=== PATIENT | male | born 1960 | race African-American/Black ===

== ENCOUNTER 2020-02-13 18:32 | Emergency (ER) | payer SELFPAY ==
[~2020-02-13] VITALS: Ht 170.2 cm; Wt 64.0 kg
[2020-02-13 18:40] VITALS: BP 139/70
[2020-02-13] MEDS ORDERED: IBUPROFEN 600MG TABLET PO ONE (19:00)
[2020-02-13] MEDS: IBUPROFEN 600MG TABLET PO NR ×2 (21:00→21:33)
[2020-02-13] MEDS ORDERED: LIDOCAINE HCL 1% 20ML VIAL (Pyxis) INJ INFIL ONE (21:15)
[2020-02-13] MEDS ORDERED: SULFAMETHOXAZOLE/TRIMETHOPRIM 800/160MG TABLET PO ONE (22:00)
[2020-02-13] MEDS ORDERED: TETANUS, DIPHTHERIA, PERTUSSIS VAC/PF 0.5ML (>7YR OLD) IM ONE (22:00)
== END 2020-02-13 22:34 | disposition home or self-care (01) ==
LOC: ER 18:32 → EDBD 18:32 → ER 22:34
DX: L02.511 Cutaneous abscess of right hand (principal); I11.9 Hypertensive heart disease without heart failure; F14.10 Cocaine abuse, uncomplicated; F15.10 Other stimulant abuse, uncomplicated; F41.9 Anxiety disorder, unspecified; F17.210 Nicotine dependence, cigarettes, uncomplicated; Z91.041 Radiographic dye allergy status; Z88.0 Allergy status to penicillin; Z91.013 Allergy to seafood; Z87.828 Personal history of other (healed) physical injury and trauma
CPT/HCPCS: 10060; 73130; 90471; 90715; 99283; J3490; Z7610

== ENCOUNTER 2020-02-26 09:19 | Emergency (ER) | payer MEDICAID ==
[2020-02-26] MEDS ORDERED: ALBUTEROL 6.7GM HFA INHALER ORI ONE (09:30)
[2020-02-26] MEDS ORDERED: KETOROLAC 15MG/ML VIAL IV ONE (10:00)
[2020-02-26 10:12] LABS: BASOPHILS % 0.9 % (0.0-2.0); EOSINOPHILS % 0.5 % (0.0-5.0); HEMATOCRIT. 39.1 % (42.0-52.0); HEMOGLOBIN. 12.5 g/dL (14.0-18.0); LYMPHOCYTES % 20.3 % (20.0-50.0); MEAN CORPUSCULAR HEMOGLOBIN 29.1 pg (28.0-32.0); MEAN CORPUSCULAR VOLUME 90.7 fL (80.0-94.0); MONOCYTES % 10.3 % (2.0-8.0); PLATELET 199 x1000/uL (130-400); RED BLOOD CELL COUNT 4.31 mill/uL (4.7-6.1)
[2020-02-26 10:18] LABS: CHLORIDE 103 mEq/L (98-107)
== END 2020-02-26 13:16 | disposition left against medical advice (07) ==
LOC: ER 09:19
DX: I11.9 Hypertensive heart disease without heart failure (principal); B34.9 Viral infection, unspecified; F14.10 Cocaine abuse, uncomplicated; F15.10 Other stimulant abuse, uncomplicated; F17.200 Nicotine dependence, unspecified, uncomplicated; Z98.890 Other specified postprocedural states; Z88.0 Allergy status to penicillin; Z91.013 Allergy to seafood; Z91.041 Radiographic dye allergy status
CPT/HCPCS: 36415; 80053; 83880; 84484; 85025; 93005; 99284

== ENCOUNTER 2020-03-29 11:24 | Emergency (ER) | payer MEDICAID ==
[~2020-03-29] VITALS: Ht 175.3 cm; Wt 74.8 kg
[2020-03-29] MEDS ORDERED: ONDANSETRON HCL 4MG/2ML INJ IV ONE (11:45)
[2020-03-29] MEDS ORDERED: LEVOFLOXACIN 750MG PREMIX 150 ML IV ONE (11:45)
[2020-03-29] MEDS ORDERED: DEXAMETHASONE 10 MG/ML VIAL IV ONE (11:45)
[2020-03-29] MEDS ORDERED: ACETAMINOPHEN 325MG TABLET PO ONE (11:45)
[2020-03-29] MEDS ORDERED: OSELTAMIVIR 75MG CAPSULE PO ONE (12:00)
[2020-03-29] MEDS ORDERED: ASPIRIN 81MG TABLET PO ONE (12:00)
[2020-03-29 12:20] LABS: HEMOGLOBIN. 12.4 g/dL (14.0-18.0); MEAN CORPUSCULAR VOLUME 89.1 fL (80.0-94.0); MEAN PLATELET VOLUME 8.4 fl (7.4-10.4); PLATELET 267 x1000/uL (130-400); RED BLOOD CELL COUNT 4.26 mill/uL (4.7-6.1); RED CELL DISTRIBUTION WIDTH 13.8 % (11.6-14.6)
[2020-03-29 12:28] LABS: CHLORIDE 101 mEq/L (98-107)
[2020-03-29 12:29] LABS: INR 1.2; PARTIAL THROMBOPLASTIN TIME 32.5 sec (23.4-31.0); PROTHROMBIN TIME 12.4 sec (9.6-11.0)
[2020-03-29 12:54] VITALS: BP 159/96
[2020-03-29 13:16] LABS: PLATELET ESTIMATE NORMAL
[2020-03-29 13:29] LABS: CLARITY URINE CLEAR (CLEAR); COLOR URINE YELLOW (YELLOW); KETONES URINE TRACE (NEGATIVE); LEUKOCYTE ESTERASE URINE NEGATIVE (NEGATIVE); NITRITE URINE NEGATIVE (NEGATIVE); OCCULT BLOOD URINE NEGATIVE (NEGATIVE); PROTEIN URINE 1+ (NEGATIVE); SPECIFIC GRAVITY URINE 1.022 (1.005-1.030)
== END 2020-03-29 14:45 | disposition left against medical advice (07) ==
LOC: ER 11:24
DX: R06.02 Shortness of breath (principal); R06.00 Dyspnea, unspecified; R50.9 Fever, unspecified; R94.31 Abnormal electrocardiogram [ECG] [EKG]; I10 Essential (primary) hypertension; Z88.0 Allergy status to penicillin; Z20.822 Contact with and (suspected) exposure to COVID-19; Z91.013 Allergy to seafood; Z91.041 Radiographic dye allergy status
CPT/HCPCS: 36415; 71045; 80053; 81003; 83605; 83880; 84145; 84484; 85025; 85610; 85730; 87040; 87086; 87804; 93005; 96365; 96375; 99285; C9803; J1100; J1956; J2405; U0003; Z7610

== ENCOUNTER 2020-11-01 18:05 | Inpatient (IN) | payer MEDICAID ==
[~2020-11-01] VITALS: Ht 182.9 cm; Wt 61.4 kg
[2020-11-01] MEDS ORDERED: SODIUM CHLORIDE 0.9% 1,000 ML IV ONE (18:45)
[2020-11-01] MEDS ORDERED: DILTIAZEM HCL 5MG/ML 5ML VIAL IV ONE ×3 (18:45→21:15)
[2020-11-01 19:09] LABS: BASOPHILS % 0.5 % (0.0-2.0); HEMATOCRIT. 41.4 % (42.0-52.0); HEMOGLOBIN. 13.7 g/dL (14.0-18.0); LYMPHOCYTES % 10.8 % (20.0-50.0); MEAN CORPUSCULAR HEMOGLOBIN 29.2 pg (28.0-32.0); MEAN CORPUSCULAR VOLUME 88.1 fL (80.0-94.0); MEAN PLATELET VOLUME 9.5 fl (7.4-10.4); MONOCYTES % 11.4 % (2.0-8.0); NEUTROPHILS % 77.3 % (40.0-76.0); PLATELET 223 x1000/uL (130-400); RED BLOOD CELL COUNT 4.69 mill/uL (4.7-6.1); RED CELL DISTRIBUTION WIDTH 13.9 % (11.6-14.6)
[2020-11-01 19:16] LABS: CHLORIDE 102 mEq/L (98-107)
[2020-11-01 19:20] LABS: ETHANOL BLOOD < 10 mg/dL
[2020-11-01] MEDS ORDERED: MAGNESIUM 1 G PREMIX 100 ML IV ONE (20:00)
[2020-11-01] MEDS ORDERED: DILTIAZEM HCL 125 MG in DEXT 5% WATER 100 ML IV ONE (20:30)
[2020-11-01] MEDS ORDERED: DILTIAZEM HCL 125 MG in DEXT 5% WATER 100 ML IV NR (21:15)
[2020-11-01] MEDS ORDERED: ADENOSINE 3 MG/ML 2ML VIAL IV ONE ×2 (22:30→22:45)
[2020-11-01] MEDS ORDERED: LORAZEPAM 2MG/ML CPJ IV ONE (22:45)
[2020-11-01] MEDS ORDERED: ASPIRIN 325MG EC TABLET PO ONE (23:15)
[2020-11-01] MEDS ORDERED: ACETAMINOPHEN 325MG TABLET PO PRN ×2 (23:45)
[2020-11-01] MEDS ORDERED: DILTIAZEM HCL 125 MG in DEXT 5% WATER 100 ML IV PRN (23:45)
[2020-11-01] MEDS ORDERED: CLONIDINE 0.1MG TABLET PO PRN (23:45)
[2020-11-01] MEDS ORDERED: SODIUM CHLORIDE 0.9% 1,000 ML IV SCH (23:45)
[2020-11-01] MEDS ORDERED: MAGNESIUM/ALUMINUM HYDROXIDE/SIMETHICONE 30ML UDC PO PRN (23:45)
[2020-11-02] VITALS (12 sets, daily range): BP systolic 132–181; BP diastolic 67–168
[2020-11-02] MEDS ORDERED: LORAZEPAM 2MG/ML CPJ IV ONE ×3 (00:45→05:00)
[2020-11-02] MEDS ORDERED: DILTIAZEM HCL 5MG/ML 5ML VIAL IV ONE (00:45)
[2020-11-02] MEDS: LEVETIRACETAM 500MG PREMIX 100 ML IV SCH ×3 (01:00→20:32)
[2020-11-02] MEDS: DILTIAZEM HCL 60MG TABLET PO SCH ×4 (01:43→18:22)
[2020-11-02] MEDS: SODIUM CHLORIDE 0.9% 1,000 ML IV SCH ×2 (03:10→11:00)
[2020-11-02 03:35] LABS: CANNABINOID URINE SCREEN NEGATIVE (NEGATIVE); METHADONE URINE SCREEN NEGATIVE (NEGATIVE); OPIATES URINE SCREEN PRESUMTIVE POSITIVE (NEGATIVE); PHENCYCLIDINE URINE SCREEN NEGATIVE (NEGATIVE)
[2020-11-02 03:36] LABS: *AMPHETAMINES SCREEN URINE NEGATIVE (NEGATIVE); *BARBITURATES SCREEN URINE NEGATIVE (NEGATIVE); *BENZODIAZEPINES SCREEN URINE NEGATIVE (NEGATIVE); *COCAINE SCREEN URINE PRESUMTIVE POSITIVE (NEGATIVE)
[2020-11-02] MEDS ORDERED: HALOPERIDOL LACTATE 5MG/ML VIAL IM ONE (05:00)
[2020-11-02 08:32] LABS: BASOPHILS % 0.5 % (0.0-2.0); EOSINOPHILS % 0.3 % (0.0-5.0); HEMATOCRIT. 45.6 % (42.0-52.0); HEMOGLOBIN. 14.3 g/dL (14.0-18.0); LYMPHOCYTES % 13.9 % (20.0-50.0); MEAN CORPUSCULAR VOLUME 92.3 fL (80.0-94.0); MEAN PLATELET VOLUME 9.7 fl (7.4-10.4); MONOCYTES % 11.5 % (2.0-8.0); NEUTROPHILS % 73.8 % (40.0-76.0); PLATELET 166 x1000/uL (130-400); RED BLOOD CELL COUNT 4.94 mill/uL (4.7-6.1); RED CELL DISTRIBUTION WIDTH 14.2 % (11.6-14.6)
[2020-11-02 08:59] LABS: CREATINE KINASE 2575 IU/L (39-308)
[2020-11-02 09:04] LABS: CHLORIDE 109 mEq/L (98-107)
[2020-11-02] MEDS: DILTIAZEM HCL 125 MG in DEXT 5% WATER 100 ML IV PRN (15:28)
[2020-11-02] MEDS ORDERED: HYDRALAZINE 20MG/ML VIAL IV PRN (16:15)
[2020-11-02] MEDS ORDERED: THIAMINE HCL 100 MG in SODIUM CHLORIDE 0.9% 49 ML IV NR (18:00)
[2020-11-02] MEDS: DEXT 5%/0.45% NACL KCL 10MEQ/L 1,000 ML IV SCH (18:22)
[2020-11-02] MEDS: LORAZEPAM 2MG/ML CPJ IV PRN (18:39)
[2020-11-03] VITALS (11 sets, daily range): BP systolic 130–189; BP diastolic 65–157
[2020-11-03] MEDS: DILTIAZEM HCL 60MG TABLET PO SCH ×3 (00:15→13:25)
[2020-11-03] MEDS: DILTIAZEM HCL 125 MG in DEXT 5% WATER 100 ML IV PRN (00:43)
[2020-11-03] MEDS: LORAZEPAM 2MG/ML CPJ IV PRN ×4 (01:30→20:22)
[2020-11-03] MEDS ORDERED: DILTIAZEM HCL 125 MG in DEXT 5% WATER 100 ML IV PRN (02:16)
[2020-11-03] MEDS: DEXT 5%/0.45% NACL KCL 10MEQ/L 1,000 ML IV SCH ×2 (04:01→13:27)
[2020-11-03 06:26] LABS: BASOPHILS % 0.6 % (0.0-2.0); EOSINOPHILS % 1.2 % (0.0-5.0); HEMATOCRIT. 44.8 % (42.0-52.0); HEMOGLOBIN. 14.5 g/dL (14.0-18.0); LYMPHOCYTES % 12.7 % (20.0-50.0); MEAN CORPUSCULAR HEMOGLOBIN 28.8 pg (28.0-32.0); MEAN CORPUSCULAR VOLUME 89.3 fL (80.0-94.0); MEAN PLATELET VOLUME 10.2 fl (7.4-10.4); MONOCYTES % 13.7 % (2.0-8.0); NEUTROPHILS % 71.8 % (40.0-76.0); PLATELET 185 x1000/uL (130-400); RED BLOOD CELL COUNT 5.02 mill/uL (4.7-6.1)
[2020-11-03 06:43] LABS: CHLORIDE 108 mEq/L (98-107)
[2020-11-03 06:53] LABS: PHOSPHORUS 3.2 mg/dL (2.5-4.9)
[2020-11-03] MEDS: LEVETIRACETAM 500MG PREMIX 100 ML IV SCH (10:59)
[2020-11-03] MEDS: ONDANSETRON HCL 4MG/2ML INJ IV PRN ×2 (14:34→23:13)
[2020-11-03] MEDS: DILTIAZEM HCL 90MG TABLET PO SCH ×2 (18:11→23:13)
[2020-11-03] MEDS: LEVETIRACETAM 500MG/5ML CUP PO SCH (20:22)
[2020-11-03] MEDS: ZOLPIDEM TARTRATE 5MG TABLET PO PRN (20:22)
[2020-11-03] MEDS: DIPHENHYDRAMINE 50MG/ML VIAL IV PRN (23:14)
[2020-11-04] VITALS (7 sets, daily range): BP systolic 123–150; BP diastolic 81–95
[2020-11-04] MEDS: LORAZEPAM 2MG/ML CPJ IV PRN ×3 (00:29→12:29)
[2020-11-04] MEDS: DIPHENHYDRAMINE 50MG/ML VIAL IV PRN ×2 (03:25→13:52)
[2020-11-04] MEDS: ONDANSETRON HCL 4MG/2ML INJ IV PRN (03:25)
[2020-11-04] MEDS: DILTIAZEM HCL 90MG TABLET PO SCH ×3 (05:20→18:00)
[2020-11-04] MEDS: LEVETIRACETAM 500MG/5ML CUP PO SCH ×2 (07:48→21:47)
[2020-11-04] MEDS: RISPERIDONE 1MG TABLET PO SCH (21:47)
[2020-11-04] MEDS: METOPROLOL TARTRATE 25MG TABLET PO SCH (21:48)
[2020-11-04] MEDS: ZOLPIDEM TARTRATE 5MG TABLET PO PRN (21:48)
[2020-11-05] VITALS (7 sets, daily range): BP systolic 98–136; BP diastolic 57–95
[2020-11-05] MEDS: DILTIAZEM HCL 90MG TABLET PO SCH ×4 (00:46→17:42)
[2020-11-05] MEDS ORDERED: LOSARTAN POTASSIUM 25 MG TABLET PO SCH (09:00)
[2020-11-05] MEDS: LEVETIRACETAM 500MG/5ML CUP PO SCH (09:58)
[2020-11-05] MEDS: METOPROLOL TARTRATE 25MG TABLET PO SCH (09:58)
[2020-11-05] MEDS: RISPERIDONE 1MG TABLET PO SCH (09:58)
== END 2020-11-05 21:00 | disposition left against medical advice (07) | DRG 52 ==
LOC: ER 18:05 → MICUSO 21:07 → 5EST 11-02 08:28 → 8WST 11-05 04:20
PROVIDERS: ADMIT Internal Medicine; ATTEND Internal Medicine
DX: G92 Toxic encephalopathy (principal); N17.9 Acute kidney failure, unspecified; I48.20 Chronic atrial fibrillation, unspecified; M62.82 Rhabdomyolysis; E86.0 Dehydration; F14.10 Cocaine abuse, uncomplicated; G40.909 Epilepsy, unspecified, not intractable, without status epilepticus; I48.92 Unspecified atrial flutter; F15.10 Other stimulant abuse, uncomplicated; I10 Essential (primary) hypertension; Z91.041 Radiographic dye allergy status; Z88.0 Allergy status to penicillin; Z91.013 Allergy to seafood; Z79.01 Long term (current) use of anticoagulants
CPT/HCPCS: 36415; 71045; 80048; 80053; 80305; 80320; 82550; 83735; 83880; 84100; 84443; 84484; 85025; 93005; 97162; 99291; J0153; J0360; J1200; J1630; J1953; J2060; J2405; J3411; J3475; J3490; J7030; J7060; G0480